=== PATIENT | male | born 1945 | race Caucasian/White ===

== ENCOUNTER 2021-09-06 02:00 | Emergency (ER) | payer OTHER ==
[~2021-09-06] VITALS: Ht 175.3 cm; Wt 135.7 kg
--- NOTE | ~2021-09-06 | EMS ---
[address] [address] EMS Patient Care Report Name: DEBBY CUEVAS Room #: DEP FLORIAN Hanson#: [id number] Admission: 09/06/21 Attend Phys: Discharge: 09/06/21 Date of : 47 Report #: [id number] THIS REPORT FOR: //name// Report Transmitted: 09/09/2021 10:31 EMS Care Summary [place], [place]/[facility] Incident [id number] @ 09/06/2021 01:17 Incident Location [id number] [place] [address] Patient DEBBY CUEVAS Male, 75 Years 1945 Patient Address [address] [place] [address] Patient History Cardiac Condition - Other, Patient Allergies Other drug allergy, Patient Medications Unknown, Chief Complaint SOB Disposition Transported No Lights/[place] Dispatch Reason Breathing Problem Transported To [facility] Narrative SCENE: ON ARRIVAL PT FOUND SITTING UPRIGHT IN CHAIR IN FRONT ROOM OF ADDRESS PROVIDED PT IS AWAKE AND ALERT WITH A GCS OF 15. PT CO SOB. PT REPORTS PT HAD A CARDIAC ABLATION ON WEDNESDAY. PT LUNG SOUNDS SLIGHTLY DIMINSHED IN LOWER [place]. PT PLACED ON DUONEB BREATHING TREATMENT. PT PLACED ON EMS STRETCHER. [address] [address] EMS Patient Care Report Name: DEBBY CUEVAS Room #: DEP ER Valentin#: [id number] Admission: 09/06/21 Attend Phys: Discharge: 09/06/21 Date of : 47 Report #: [id number] AMBULANCE: VITALS MONITORED. NO CHANGES Initial Vitals @01:42P: 87,R: 18,BP: 154/78,Pain: 0/10,GCS: 15,Revised Trauma: 12, @01:35P: 89,R: 28,BP: 164/86,Pain: 0/10,GCS: 15,SpO2: 97,Revised Trauma: 12, Assessments @01:28MENTAL:No Abnormalities,SKIN:No Abnormalities,HEENT:Head/Face: No Abnormalities,Eyes: No Abnormalities,Neck/Airway: No Abnormalities,LUNG SOUNDS:General: No Abnormalities,Left Upper: No Abnormalities,Right Upper: No Abnormalities,Left Lower: No Abnormalities,Right Lower: No Abnormalities,ABDOMEN:General: No Abnormalities,Left Upper: No Abnormalities,Right Upper: No Abnormalities,Left Lower: No Abnormalities,Right Lower: No Abnormalities,PELVIS//GI:No Abnormalities,EXTREMITIES:Left Arm: No Abnormalities,Right Arm: No Abnormalities,Left Leg: No Abnormalities,Right Leg: No Abnormalities,PULSE:NEURO:No Abnormalities,@01:36MENTAL:No Abnormalities,SKIN:No Abnormalities,HEENT:Head/Face: No Abnormalities,Eyes: No Abnormalities,Neck/Airway: No Abnormalities,LUNG SOUNDS:General: No Abnormalities,Left Upper: No Abnormalities,Right Upper: No Abnormalities,Left Lower: No Abnormalities,Right Lower: No Abnormalities,ABDOMEN:General: No Abnormalities,Left Upper: No Abnormalities,Right Upper: No Abnormalities,Left Lower: No Abnormalities,Right Lower: No Abnormalities,PELVIS//GI:No Abnormalities,EXTREMITIES:Left Arm: No Abnormalities,Right Arm: No Abnormalities,Left Leg: No Abnormalities,Right Leg: No Abnormalities,PULSE:NEURO:No Abnormalities, Impression Acute Respiratory Distress (Dyspnea) Procedures @01:28 ALS Assessment Response: UnchangedSucceeded @01:30 Albuterol - 2.5 Milligrams (mg) - Nebulized Response: Improved @01:30 Atrovent - 0.5 Milligrams (mg) - Nebulized Response: Unchanged @01:40 Stretcher Response: Unchanged Timeline 01:16,Call Received 01:16,Dispatch Notified 01:17,Dispatched 01:20,En Route 01:26,On Scene 01:28,At Patient 01:28,ALS Assessment,Response: UnchangedSucceeded, 01:30,Albuterol - 2.5 Milligrams (mg) - Nebulized,Response: Improved [facility] [address] [place] [address] EMS Patient Care Report Name: DEBBY CUEVAS [facility] [id number] Admission: 09/06/21 Attend Phys: Discharge: 09/06/21 Date of : 47 Report #: [id number] 01:30,Atrovent - 0.5 Milligrams (mg) - Nebulized,Response: Unchanged 01:35,BP: 164/86 M,PULSE: 89,RR: 28 R,SPO2: 97 Ox,ETCO2: ,BG: ,PAIN: 0,GCS: 15, 01:36,Depart Scene 01:40,Stretcher,Response: Unchanged 01:42,BP: 154/78 M,PULSE: 87,RR: 18 R,SPO2: Ox,ETCO2: ,BG: ,PAIN: 0,GCS: 15, 01:47,At Destination 02:17,Call Closed Disclaimer v1.1 Copyright 2021 [employer] This EMS Care Summary contains data elements from the applicable legal record (which may be displayed differently). It is designed to provide pertinent information for the following purposes: continuity of care, clinical quality, and state data reporting. The complete legal record is available to ED staff and administrators of the receiving hospital in [facility]'s Patient Tracker. All data is provided "as is."
[~2021-09-06 02:00] MED LIST: ANAPROX DS550 MG PO; ASPIRIN81 M2; DILAUDID 2 MG TA2 MG PO; LOPRESSOR 50 MG50 M1; NORFLEX100 MG PO; SIMVASTATIN10 MG
[2021-09-06 02:25] LABS: ABSOLUTE NEUTROPHILS 7.7 thou/uL (1.4-8.2); BASOPHILS 1.2 % (0.0-2.0); EOSINOPHILS 1.3 % (0.0-3.0); HEMATOCRIT 38.7 % (42.0-52.0); HEMOGLOBIN 12.8 gm/dL (14.0-18.0); LYMPHOCYTES 15.3 % (24.0-44.0); MCHC 33.1 g/dL (28.0-37.0); MCV 93.7 fL (80.0-100.0); MONOCYTES 10.1 % (1.0-8.0); PLATELET COUNT 180 thou/uL (150-400); POLYS 72.1 % (36.0-66.0); RBC 4.13 mil/uL (4.50-6.00); RDW 13.8 % (10.5-14.5); WBC 10.7 thou/uL (4.0-11.0)
[2021-09-06 02:28] LABS: CREATININE 0.9 mg/dL (0.7-1.3)
[2021-09-06 02:34] LABS: POTASSIUM 4.3 mmol/L (3.5-5.1)
[2021-09-06 02:37] LABS: ALBUMIN 3.3 g/dL (3.4-5.0); TOTAL BILIRUBIN 0.6 mg/dL (0.2-1.0); TOTAL PROTEIN 6.9 g/dL (6.4-8.2)
[2021-09-06 02:40] LABS: PROTIME 10.9 Seconds (10.5-12.1)
[2021-09-06] MEDS ORDERED: AMIODARONE HCL400 MG PO (02:46)
[2021-09-06] MEDS ORDERED: PLAVIX 75 MG TA75 MG PO (02:47)
[2021-09-06] MEDS ORDERED: ELIQUIS5 MG PO (02:47)
[2021-09-06] MEDS ORDERED: COLCRYS0.6 MG PO (02:47)
[2021-09-06] MEDS ORDERED: LASIX 20 MG TAB20 MG PO (02:48)
[2021-09-06] MEDS ORDERED: PREVACID30 MG PO (02:49)
[2021-09-06] MEDS ORDERED: COZAAR 25 MG TA25 M1 PO (02:49)
[2021-09-06] MEDS ORDERED: MYSOLINE50 MG PO (02:50)
[2021-09-06] MEDS ORDERED: OXYCODONE HCL5 MG PO (02:50)
[2021-09-06] MEDS ORDERED: METOPROLOL TART25 MG PO (02:50)
[2021-09-06] MEDS ORDERED: CARAFATE1 GM PO (02:51)
[2021-09-06] MEDS ORDERED: CRESTOR40 MG PO (02:51)
[2021-09-06] MEDS ORDERED: THERAGRAN-M PR1 EAC1 PO (02:52)
[2021-09-06 05:00] VITALS: BP 131/71
--- NOTE | 2021-09-06 09:42 | EKG ---
[place] [address] [facility] [place] [address] ELECTROCARDIOGRAM REPORT Name: DEBBY CUEVAS [facility] [id number] Admission: 09/06/21 Attend Phys: Discharge: Date of : 47 Report #: [id number] [facility] ED Test Date: 2021-09-06 Test Time: 02:07:12 Pat Name: DEBBY CUEVAS Department: Room: Gender: M Innovation Manager: JONEL : 1945 Requested By: Emir Alexander Order Number: [id number] MD: Richy Galo Measurements Intervals [place] Rate: 99 P: -6 SD: 254 QRS: -31 QRSD: 135 T: 91 QT: 397 QTc: 510 Interpretive Statements Sinus rhythm Multiple premature complexes, vent & supraven Prolonged SD interval Left bundle branch block No previous ECG available for comparison Electronically Signed On 09-06-2021 9:42:15 LINKING MACHINE OPERATOR by Richy Galo [email or web address] <ELECTRONICALLY SIGNED> By: Richy Galo MD, [facility] 09/06/21 [id number] Richy Galo MD, FACC /EPI
== END 2021-09-06 06:10 | disposition short-term general hospital (02) ==
LOC: ER 02:00
PROVIDERS: Emergency Medicine
DX: R07.89 Other chest pain (principal); Z20.822 Contact with and (suspected) exposure to COVID-19; R06.02 Shortness of breath; R77.8 Other specified abnormalities of plasma proteins; I25.2 Old myocardial infarction; I10 Essential (primary) hypertension; E78.00 Pure hypercholesterolemia, unspecified; Z98.890 Other specified postprocedural states; Z79.899 Other long term (current) drug therapy; Z79.891 Long term (current) use of opiate analgesic; Z79.1 Long term (current) use of non-steroidal anti-inflammatories (NSAID); Z88.0 Allergy status to penicillin